=== PATIENT | female | born 1960 | race Caucasian/White ===

== ENCOUNTER 2020-09-08 22:48 | Emergency (ER) | payer OTHER ==
[2020-09-08] MEDS ORDERED: traMADol HCl 50 MG TAB ONE (23:13)
[2020-09-08] MEDS ORDERED: Cephalexin 250 MG CAP ONE (23:13)
[2020-09-08] MEDS ORDERED: Boostrix 0.5 ML (Tdap) VIAL ONE (23:17)
== END 2020-09-08 23:55 | disposition home or self-care (01) ==
LOC: NAV ERS 22:48
DX: T23.202A Burn of second degree of left hand, unspecified site, initial encounter (principal); T31.0 Burns involving less than 10% of body surface; L03.114 Cellulitis of left upper limb; E11.9 Type 2 diabetes mellitus without complications; J45.909 Unspecified asthma, uncomplicated; X11.8XXA Contact with other hot tap-water, initial encounter
CPT/HCPCS: 90471; 90715